=== PATIENT | female | born 1975 | race Caucasian/White ===

== ENCOUNTER → 2017-04-28 | Outpatient (CLI) | payer OTHER ==
[~2017-04-28] VITALS: Ht 160 cm; Wt 136.5 kg
== END ==
LOC: LIGHT 09:38
DX: Z98.84 Bariatric surgery status (principal); K21.9 Gastro-esophageal reflux disease without esophagitis; E03.9 Hypothyroidism, unspecified; E66.01 Morbid (severe) obesity due to excess calories; Z68.43 Body mass index [BMI] 50.0-59.9, adult; Z71.3 Dietary counseling and surveillance
CPT/HCPCS: G0463

== ENCOUNTER → 2017-06-09 | Outpatient (CLI) | payer OTHER ==
[~2017-06-09] VITALS: Ht 160 cm; Wt 139.9 kg
[~2017-06-09] MED LIST: ALDACTONE 100M100 MG PO; GLUCOPHAGE500 MG/TAB PO; PROTONIX 40MG T40 MG PO; SYNTHROID 0.0.025 MG PO
[2017-06-09 16:26] VITALS: BP 120/60; PULSE 68
== END ==
LOC: LIGHT 09:47
DX: Z98.84 Bariatric surgery status (principal); E03.9 Hypothyroidism, unspecified; E66.01 Morbid (severe) obesity due to excess calories; Z68.43 Body mass index [BMI] 50.0-59.9, adult; Z71.3 Dietary counseling and surveillance
CPT/HCPCS: G0463

== ENCOUNTER → 2017-06-16 | Outpatient (CLI) | payer OTHER ==
[~2017-06-16] VITALS: Ht 160 cm; Wt 140.6 kg
== END ==
LOC: LIGHT 08:38
DX: Z01.89 Encounter for other specified special examinations (principal)

== ENCOUNTER 2023-06-13 07:41 | Day surgery (SDC) | payer OTHER ==
[~2023-06-13] VITALS: Ht 160 cm; Wt 150.0 kg
[~2023-06-13 07:41] MED LIST changes: +LR 1,000 ML IV SCH; +Ondansetron 4 MG/2 ML VIAL IV SCH
[2023-06-13] MEDS ORDERED: LR 1,000 ML IV ONE (08:15)
[2023-06-13] MEDS ORDERED: ERGOCALCIFER50000 IU PO (08:28)
[2023-06-13] MEDS ORDERED: NEURONTIN300 MG/CAP PO (08:28)
[2023-06-13] MEDS ORDERED: AJOVY225 MG/1.5 SQ (08:29)
[2023-06-13 08:57] VITALS: BP 156/72; PULSE 83; TEMP 97.7
[2023-06-13] MEDS ORDERED: fentaNYL 50 MCG/ML 2 ML VIAL ONE (09:33)
[2023-06-13] MEDS ORDERED: Lidocaine PF 2% (20 MG/ML) 5 ML VIAL ONE (09:33)
[2023-06-13] MEDS ORDERED: Ketorolac 30 MG/ML VIAL ONE (09:38)
[2023-06-13 10:36] VITALS: BP 108/48; PULSE 81; TEMP 96.8
--- NOTE | 2023-06-13 10:36 | NUR ---
PATIENT RETURNED TO ROOM 7 VIA CART, ALERT AND ORIENTED X3. STATES SHE HAS LOWER ABDOMINAL PAIN DESCRIBED "SIMILAR TO PERIOD CRAMPS". PATIENT WANTED TO TRY A WARM BLANKET PLACED OVER ABDOMEN. DENIES NAUSEA AND SHORTNESS OF BREATH. BREATHING REGULAR AND UNLABORED ON ROOM AIR. SKIN WARM AND DRY. ABDOMEN SOFT, ROUNDED. NO VAGINAL DISCHARGE/BLOOD. HANDOFF COMPLETED IN ROOM BY OR NURSE RAMESH AND KEANU RHODES CRNA. SEE CHART FOR VITAL SIGNS. PATIENT HAD GRAPE JUICE, SALTINES AND CHEESE. FOOD AND DRINK TOLERATED WELL. SPOUSE, NIMISHA, PRESENT IN ROOM. CALL LIGHT IN REACH.
[2023-06-13 10:41] VITALS: BP 134/76; PULSE 73
[2023-06-13 11:07] VITALS: BP 113/53; PULSE 78
[2023-06-13 11:58] VITALS: BP 135/80; PULSE 75
[2023-06-13] MEDS ORDERED: Naloxone 0.4 MG/ML VIAL IV PRN (12:00)
[2023-06-13] MEDS ORDERED: oxyCODONE 5 MG TAB PO PRN (12:00)
[2023-06-13] MEDS ORDERED: Acetaminophen 500 MG TAB PO SCH (12:00)
[2023-06-13] MEDS ORDERED: Ondansetron 4 MG/2 ML VIAL IV PRN (12:00)
[2023-06-13] MEDS ORDERED: LR 1,000 ML IV SCH (12:00)
--- NOTE | 2023-06-13 12:10 | NUR ---
1150: PATIENT AMBULATED TO RESTROOM WITH STEADY GAIT AND VOIDED WITHOUT DIFFICULTY. PATIENT REPORTED "TOLERABLE" LOWER ABDOMINAL PAIN SHE DESCRIBED "CRAMPING" AND REQUESTED TO BE DISCHARGED TO MANAGE PAIN WITH OVER THE COUNTER MEDICATION AT HOME. 1159: DISCHARGE TEACHING COMPLETED WITH PRINTED EDUCATION AND INSTRUCTIONS SENT HOME WITH PATIENT. PATIENT STATED SHE ALREADY HAD A FOLLOW UP APPOINTMENT SCHEDULED AND WAS INSTRUCTED TO KEEP APPOINTMENT. PATIENT AND SPOUSE VERBALIZED UNDERSTANDING. 1159: LEFT HAND IV REMOVED. GAUZE AND COBAN PLACED OVER SITE. 1210: PATIENT CHANGED INTO PERSONAL CLOTHING AND DISCHARGED HOME WITH SPOUSE, NIMISHA, TRANSPORT.
[2023-06-13] MEDS ORDERED: Gabapentin 300 MG CAP PO SCH (14:00)
[2023-06-13] MEDS ORDERED: Ibuprofen 600 MG TAB PO SCH (16:33)
[2023-06-13] MEDS ORDERED: Docusate Sodium 100 MG CAP PO SCH (21:00)
[2023-06-20] MEDS ORDERED: Ergocalciferol 1.25 MG (50,000 UNITS) CAPSULE PO SCH (08:00)
== END 2023-06-13 12:10 | disposition home or self-care (01) ==
LOC: SDCO 07:41
DX: N92.1 Excessive and frequent menstruation with irregular cycle (principal); N94.5 Secondary dysmenorrhea; N84.0 Polyp of corpus uteri; D25.9 Leiomyoma of uterus, unspecified; E28.2 Polycystic ovarian syndrome; R73.03 Prediabetes; E66.01 Morbid (severe) obesity due to excess calories; G43.909 Migraine, unspecified, not intractable, without status migrainosus; E55.9 Vitamin D deficiency, unspecified; Z68.43 Body mass index [BMI] 50.0-59.9, adult; Z98.84 Bariatric surgery status
CPT/HCPCS: J1885; J2405; J2704; J2765; J3010; J7120